=== PATIENT | male | born 1955 | race Caucasian/White ===

== ENCOUNTER 2018-10-29 21:57 | Emergency (ER) | payer OTHER ==
[2018-10-29] MEDS ORDERED: ALPRAZolam 0.25 MG TAB GT ONE (22:06)
[2018-10-29] MEDS ORDERED: ALPRAZolam 0.5 MG TAB ONE (22:14)
--- NOTE | 2018-10-29 22:37 | RAD ---
EXAM DESCRIPTION: Chest,1 View CLINICAL HISTORY: 63 years Male, sob COMPARISON: None. FINDINGS: There is suggestion of a tracheostomy tube overlying the mid trachea. Soft tissue air in the neck region noted. A G-tube is present. There is a small amount of opacity in both lower lung zones. There is blunting of the left costophrenic angle suggestive of a small left pleural effusion versus pleural thickening. Prominence of pulmonary interstitial markings is noted. Cardiac silhouette appears mildly enlarged. ACDF changes are present. IMPRESSION: 1. Small bibasilar pulmonary opacities which could represent atelectasis or infiltrates such as pneumonia. 2. Possible small left pleural effusion versus pleural thickening. 3. Prominence of pulmonary interstitial markings suggestive of pulmonary edema. 4. Soft tissue air at the base of the neck of uncertain significance. Electronically signed by: Naeem Fisher MD 10/29/2018 10:36 PM CDT
--- NOTE | 2018-10-29 22:37 | RAD ---
EXAM: XR Left Hip With Pelvis When Performed, 2 or 3 Views CLINICAL HISTORY: The patient is 63 years old and is Male; pain from fall a few weeks ago TECHNIQUE: Two or three views of the left hip with pelvis when performed. COMPARISON: No relevant prior studies available. FINDINGS: BONES/JOINTS: A left hip prosthesis is present. The hardware is engaged without surrounding lucency. The visualized bones of the pelvis are intact. No acute fracture. No dislocation. SOFT TISSUES: Unremarkable. VASCULATURE: Atherosclerosis of the vasculature is noted. IMPRESSION: Left hip prosthesis without acute findings. Electronically signed by: Dorcas Cano MD 10/29/2018 10:35 PM CDT
[2018-10-29] MEDS ORDERED: ACETYLCYSTEIN 20 % 6,000 MG/30 ML VIAL ONE (22:41)
[2018-10-29] MEDS ORDERED: MORPHINE SULFATE INJ 10 MG/ML VIAL IM ONE (22:59)
[2018-10-29] MEDS ORDERED: LIDOCAINE HCL 2% (MOUTH-THROAT) 15 ML UD MT ONE (23:00)
--- NOTE | 2018-10-30 01:34 | ED.PDOC ---
History of Present Illness - General Chief Complaint: Respiratory Problem Stated Complaint: short of breath Time Seen by Provider: 10/29/18 22:05 Source: patient Exam Limitations: no limitations - History of Present Illness Initial Comments: the patient is a 63-year-old male presenting to emergency room by EMS from a long-term ventilator care facility. The patient has been at that facility for about a week. The patient was apparently strictly on a ventilator for about a month secondary to respiratory failure most likely from advanced COPD. The patient is unable to give me any good history, though he is very talkative, however I did speak with his daughter over the phone. Over the past 2-3 weeks he has apparently been being weaned from the ventilator. The past 4 or 5 days it seems he is largely been on a trach collar. it seems that the general plan from long-term care [facility] was that he may be able to have the tracheostomy removed in the next week or 2. The patient had apparently done well recently up until yesterday when he accidentally dislodged his tracheostomy. They were unable to get back in his regular size 6 tracheostomy and instead placed a size 4. However since that time he has been having some difficulty breathing which did culminate today just prior to his arrival here with increasing respiratory distress and hypoxia with saturations dropping down into the 70s. Most notably upon arrival was that the patient oxygenates much better while breathing through his mouth and nose and is actually able to speak even though his trach is not fenestrated. No air could be pushed down the trach. The trach cuff was deflated and the patient was immediately able to breathe much better. The tracheostomy was removed. I did try myself once with a #6 trach and then once with a number 4 trach to try and get it back into place in the trachea. I failed both times. It appears that there is a pouch that has formed just anterior to the trachea and the hole in the trachea itself is sealing closed. A nasal laryngoscope was used by me for visualization of this more closely. If he is going to have another tracheostomy placed, then it will have to be surgically widened prior. the patient however seems to be oxygenating quite well on 40% FiO2 by face mask. he does not seem to be able to breathe in any air through the tracheostomy site, but when he exhales there is a small amount of air that comes out. pertinent past medical history: The patient apparently drank regularly prior and also smoked extensively prior. He has apparently recently had some acute renal failure that appears to have resolved. He has a history of anxiety, gastroesophageal reflux disease and chronic low back pain. There is some question of obstructive sleep apnea prior to his decompensation. 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 There is some history of coronary artery disease though I do not know the specifics. Timing/Duration: 24 hours Severity: moderate Improving Factors: nothing Worsening Factors: nothing Associated Symptoms: malaise, shortness of breath Allergies/Adverse Reactions: Allergies NO KNOWN ALLERGY Allergy (Verified 10/29/18 22:12) Home Medications: Ambulatory Orders Acetaminophen [Tylenol] 500 mg PO Q12HRS PRN 10/29/18 Albuterol Sulfate Nebs [Proventil Nebs] 2.5 mg INH Q4HR PRN 10/29/18 Alprazolam [Xanax] 1 mg GT TID 10/29/18 Atorvastatin Calcium 40 mg PO DAILY 10/29/18 Esomeprazole Magnesium [Nexium] 40 mg PEG DAILY 10/29/18 Folic Acid 1 mg GT DAILY 10/29/18 Gabapentin 400 mg PO TID 10/29/18 Hydrocodone-Acetaminophen [[place] 5-325 mg] 1 tab PO Q12HR PRN 10/29/18 Ibuprofen 600 mg PO Q8HR PRN 10/29/18 Levalbuterol Inhaler [Xopenex Hfa 45 Mcg] 2 puff INH DAILY 10/29/18 Montelukast [Singulair] 10 mg PO DAILY 10/29/18 Multiple Vitamins W/ Minerals [Centrum Silver] 1 tab PO DAILY 10/29/18 Nicotine Patch 14 mg [Habitrol Patch 14mg] 1 ea TD DAILY 10/29/18 diphenhydrAMINE HCL [Benadryl] 25 mg PO PRN 10/29/18 Review of Systems - Review of Systems Constitutional: States: no symptoms reported EENTM: States: no symptoms reported Respiratory: States: short of breath - initially Cardiology: States: no symptoms reported Gastrointestinal/Abdominal: States: no symptoms reported Genitourinary: States: no symptoms reported Musculoskeletal: States: no symptoms reported Skin: States: no symptoms reported Neurological: States: see HPI Endocrine: States: no symptoms reported All other Systems: No Change from Baseline Past Medical History (General) - Patient Medical History Hx of COPD: Yes Hx Cardiac Disorders: Yes Hx Congestive Heart Failure: Yes Hx Renal Disease: Yes - Vaccination History Immunizations Up to Date: Yes - Social History Hx Alcohol Use: Yes - Activities of Daily Living Longterm/Assisted Living (if applicable):: [facility] Family Medical History - Family History Father Family History: Unknown Physical Exam - Physical Exam General Appearance: Alert, Anxious, Obvious distress - initially Eye Exam: bilateral normal Ears, Nose, Throat: hearing grossly normal, normal ENT inspection Neck: non-tender, supple, other - see history of present illness Respiratory: respiratory distress, accessory muscle use, other - mild bibasilar rales. initial obvious increased work of breathing and respiratory distress. This did improve with deflation of the tracheostomy cuff Cardiovascular/Chest: normal peripheral pulses, no edema, tachycardia Peripheral Pulses: radial,right: 2+, radial,left: 2+, dorsalis pedis,right: 2+, dorsalis pedis,left: 2+ Gastrointestinal/Abdominal: non tender - G-tube is in place., soft Rectal Exam: deferred Back Exam: no CVA tenderness, no vertebral tenderness Extremity: non-tender, normal inspection, no pedal edema, normal capillary refill Neurologic: winemaker II-XII nml as tested, alert, other - the patient knows that he is in the [facility] emergency room. He is unable to tell almost any information from the last couple of months. He does know his daughter. This is apparently his baseline mental state at this point in his life. Skin Exam: normal color Comments: Vital Signs - 24 hr 10/29/18 10/29/18 10/29/18 22:03 22:04 23:00 Temperature 99.6 F Pulse Rate [ 128 H 120 H Left] Respiratory 24 24 Rate Blood Pressure 126/78 106/71 [Right Arm] O2 Sat by Pulse 94 L Oximetry 10/30/18 10/30/18 00:00 00:35 Temperature Pulse Rate [ 114 H 92 H Left] Respiratory 20 Rate Blood Pressure 118/76 129/83 [Right Arm] O2 Sat by Pulse 97 99 Oximetry Progress - Progress Progress: 10/30/18 01:38 the patient is a 63-year-old male presenting with respiratory distress and near respiratory failure due to a tracheostomy that was in a poor position after replacement. Respiratory distress was essentially alleviated by removing the tracheostomy apparatus. I failed twice subsequently to adequately replace it in an ideal position. direct visualization with a nasal laryngoscope shows a closing opening in the trachea. Fortunately the patient seems to be oxygenating and ventilating well on a Ventimask at 40% FiO2. It appears that he was being evaluated for possible discontinuation of the trach in the near future. He does not appear to be in any distress at this time. He is much better than upon his arrival. The patient is being transferred to [facility] for pulmonology evaluation to see if he is going to have to have the tracheostomy redone. he does have some mild CO2 retention here. I'm uncertain if that would significantly worsen with complete closure of the tracheostomy site. The patient does have a leukocytosis here. I'm uncertain if this is a long-standing finding with this patient or if this is part of a stress reaction or if there is an as of yet undiagnosed infection in the background. I do not see evidence of overt acute infection at this time. Transferring for specialty care and evaluation. The patient did receive a breathing treatment here. critical care time spent by me on above problems excluding otherwise billable procedures and including arrangements for continuation of higher level of care is 40 minutes. 10/30/18 01:45 louie elder [id number] - Results/Orders Results/Orders: chest x-ray shows numerous chronic changes consistent with COPD. He does have some atelectasis and a small pleural thickening on the left. There is the possibility of small bilateral pleural infiltrates and pulmonary congestion. Laboratory Tests 10/29/18 10/29/18 10/29/18 00:27 23:40 23:40 WBC 24.3 H* RBC 4.04 L Hgb 9.9 L Hct 31.6 L MCV 78.3 L MCH 24.5 L MCHC 31.2 L RDW 22.8 H Plt Count 539 H MPV 7.7 Absolute Neuts (auto) Not Reportable Absolute Lymphs (auto) Not Reportable Absolute Monos (auto) Not Reportable Absolute Eos (auto) Not Reportable Neutrophils % Not Reportable Neutrophils % (Manual) 90.0 H Lymphocytes % Not Reportable Lymphocytes % (Manual) 2.0 Monocytes % Not Reportable Monocytes % (Manual) 6.0 Eosinophils % Not Reportable Basophils % Not Reportable Band Neutrophils 1.0 Eosinophils 1.0 Hypochromia 2+ Platelet Estimate Increased Poikilocytosis 1+ Anisocytosis 2+ pCO2 52 H pO2 50 L HCO3 32.2 ABG pH 7.410 ABG O2 Saturation 83.1 L ABG Base Excess 7.0 ABG Deoxyhemoglobin 16.4 H Oxyhemoglobin % 80.6 L Carboxyhemoglobin % 0.6 Methemoglobin % Sat 2.4 H Calc Total Hemoglobin 9.1 L Sodium 136 Potassium 4.4 Chloride 96 L Carbon Dioxide 29 Anion Gap 15.4 BUN 17 Creatinine 0.54 L BUN/Creatinine Ratio 31.5 H Random Glucose 126 H Serum Osmolality 275.0 Calcium 8.9 Total Bilirubin 0.4 AST 23 ALT 20 Alkaline Phosphatase 77 Serum Total Protein 6.6 Albumin 2.9 L Globulin 3.7 H Albumin/Globulin Ratio 0.8 L Departure - Departure Clinical Impression: Respiratory distress, Acute respiratory failure with hypoxia and hypercarbia Tracheostomy complication, unspecified Qualifiers: Tracheostomy complication: stoma malfunction Qualified Code(s): J95.03 - Malfunction of tracheostomy stoma Disposition: Transfer to Hospital Condition: Serious Departure Forms: ED Discharge - Pt. Copy, Patient Portal Self Enrollment Referrals: RINKU CASTRO [Primary Care Provider] - 1-2 Weeks Home Medications: Ambulatory Orders Acetaminophen [Tylenol] 500 mg PO Q12HRS PRN 10/29/18 Albuterol Sulfate Nebs [Proventil Nebs] 2.5 mg INH Q4HR PRN 10/29/18 Alprazolam [Xanax] 1 mg GT TID 10/29/18 Atorvastatin Calcium 40 mg PO DAILY 10/29/18 Esomeprazole Magnesium [Nexium] 40 mg PEG DAILY 10/29/18 Folic Acid 1 mg GT DAILY 10/29/18 Gabapentin 400 mg PO TID 10/29/18 Hydrocodone-Acetaminophen [[place] 5-325 mg] 1 tab PO Q12HR PRN 10/29/18 Ibuprofen 600 mg PO Q8HR PRN 10/29/18 Levalbuterol Inhaler [Xopenex Hfa 45 Mcg] 2 puff INH DAILY 10/29/18 Montelukast [Singulair] 10 mg PO DAILY 10/29/18 Multiple Vitamins W/ Minerals [Centrum Silver] 1 tab PO DAILY 10/29/18 Nicotine Patch 14 mg [Habitrol Patch 14mg] 1 ea TD DAILY 10/29/18 diphenhydrAMINE HCL [Benadryl] 25 mg PO PRN 10/29/18 Transfer to Outside Facility - Transfer Information Accepting Provider:: dr ambrocio Accepting Facility: [facility] Reason for Transfer: required specialist not available
[2018-10-30 01:37] VITALS: BP 125/84; O2SAT 98
[2018-10-30 01:50] VITALS: TEMP 98.2
[2018-10-30] MEDS ORDERED: ACETYLCYSTEIN 20 % 6,000 MG/30 ML VIAL NEB ONE (22:06)
== END 2018-10-30 02:05 | disposition short-term general hospital (02) ==
LOC: ER 21:57
DX: J96.02 Acute respiratory failure with hypercapnia (principal); J96.01 Acute respiratory failure with hypoxia; J95.03 Malfunction of tracheostomy stoma; D72.829 Elevated white blood cell count, unspecified; J44.9 Chronic obstructive pulmonary disease, unspecified; I51.9 Heart disease, unspecified; I50.9 Heart failure, unspecified; N18.9 Chronic kidney disease, unspecified; F41.9 Anxiety disorder, unspecified; K21.9 Gastro-esophageal reflux disease without esophagitis; Z99.11 Dependence on respirator [ventilator] status; Z79.899 Other long term (current) drug therapy; Z96.642 Presence of left artificial hip joint
CPT/HCPCS: 71045; 73502; 80053; 85025; J2270